=== PATIENT | male | born 1965 | race Caucasian/White ===

== ENCOUNTER 2017-10-11 01:16 | Inpatient (IN) | payer OTHER ==
[2017-10-11] MEDS ORDERED: VANCOMYCIN IV PER PHARMACY XX (02:00)
[2017-10-11] MEDS ORDERED: PIPER-TAZO 3.375 GM IV (PMX) 100 ML IVPB (02:00)
[2017-10-11] MEDS ORDERED: BISACODYL (EC) 5 MG TAB PO (02:00)
[2017-10-11] MEDS ORDERED: ACETAMINOPHEN 325 MG TAB PO (02:00)
[2017-10-11] MEDS ORDERED: DOCUSATE SODIUM 100 MG CAP PO (02:00)
[2017-10-11] MEDS ORDERED: morphine 2 MG INJ IV (02:00)
[2017-10-11] MEDS ORDERED: ONDANSETRON 4 MG INJ IV (02:00)
[2017-10-11] MEDS ORDERED: NACL 0.9% 3 ML SYG IV (02:00)
[2017-10-11 02:58] LABS: ADD MAN DIFF? NO
[2017-10-11] MEDS ORDERED: LEVOFLOXACIN 750MG/D5W (PMX) 150 ML IVPB (03:00)
[2017-10-11 03:03] LABS: BASOPHIL # 0.1 10^3/ul (0.0-0.1); EOSINOPHILS # 0.3 10^3/ul (0.0-0.5); EOSINOPHILS % 3.3 % (0.0-7.0); HEMATOCRIT 39.1 % (42.0-52.0); HEMOGLOBIN 13.2 g/dl (14.0-18.0); LYMPHOCYTES # 1.5 10^3/ul (0.8-2.9); LYMPHOCYTES % 14.7 % (15.0-51.0); MEAN CORPUSCULAR HEMOGLOBIN 32.4 pg (29.0-33.0); MEAN CORPUSCULAR HGB CONC 33.8 g/dl (32.0-37.0); MEAN CORPUSCULAR VOLUME 96.1 fl (82.0-101.0); MEAN PLATELET VOLUME 10.2 fl (7.4-10.4); MONOCYTE # 1.1 10^3/ul (0.3-0.9); MONOCYTES % 11.3 % (0.0-11.0); NEUTROPHILS % 69.2 % (39.0-77.0); PLATELET COUNT 256 10^3/UL (140-415); RED BLOOD COUNT 4.07 10^6/ul (4.70-6.10); RED CELL DISTRIBUTION WIDTH 13.9 % (11.5-14.5)
[2017-10-11 03:03] LABS: WHITE BLOOD COUNT 10.1 10^3/ul (4.8-10.8)
[2017-10-11 03:24] LABS: ALANINE AMINOTRANSFERASE 26 IU/L (13-69); ALBUMIN 3.5 g/dl (3.3-4.9); ALBUMIN/GLOBULIN RATIO 1.16; ALKALINE PHOSPHATASE 120 IU/L (42-121); ANION GAP 13 (8-16); ASPARTATE AMINO TRANSFERASE 26 IU/L (15-46); BLOOD UREA NITROGEN 40 mg/dl (7-20); CALCIUM 8.8 mg/dl (8.4-10.2); CARBON DIOXIDE 22 mmol/L (21-31); CHLORIDE 107 mmol/L (97-110); CREATININE 1.84 mg/dl (0.61-1.24); GLUCOSE 110 mg/dl (70-220); POTASSIUM 5.1 mmol/L (3.5-5.1); SODIUM 137 mmol/L (135-144); TOTAL PROTEIN 6.5 g/dl (6.1-8.1)
[2017-10-11 03:32] LABS: HEMOGLOBIN A1C 5.5 % (0-5.9)
[2017-10-11] MEDS: SOD CHLORIDE 0.9% 1,000 ML IV ×2 (04:21→14:22)
[2017-10-11] MEDS: LEVOFLOXACIN 750MG/D5W (PMX) 150 ML IVPB (05:19)
[2017-10-11] MEDS: HYDROmorphONE 1 MG/ML SYG IV ×3 (05:48→18:44)
[2017-10-11] MEDS: metroNIDAZOLE 500 MG/NS (PMX) 100 ML IVPB ×3 (06:54→21:51)
[2017-10-11] MEDS: VANCOMYCIN 1.75 GM in SOD CHLORIDE 0.9% 500 ML IVPB (10:46)
[2017-10-11 18:34] LABS: LACTIC ACID 1.2 mmol/L (0.5-2.0)
[2017-10-11] MEDS: METHYLPREDNISOLONE 125 MG INJ IV (18:41)
[2017-10-11 18:46] LABS: C-REACTIVE PROTEIN 5.1 mg/dl (0.0-0.9)
[2017-10-11 19:45] LABS: ERYTHROCYTE SEDIMENTATION RATE 27 mm/Hr (0-20)
[2017-10-11] MEDS: COLCHICINE 0.6 MG TAB PO (20:10)
[2017-10-11 20:17] LABS: URIC ACID 9.8 mg/dl (3.1-7.9)
[2017-10-11] MEDS ORDERED: METHYLPREDNISOLONE 125 MG INJ IV (20:30)
[2017-10-12] MEDS: LORAZEPAM 2 MG INJ IV ×2 (02:14→20:39)
[2017-10-12] MEDS: SOD CHLORIDE 0.9% 1,000 ML IV ×2 (02:57→15:22)
[2017-10-12] MEDS: LEVOFLOXACIN 750MG/D5W (PMX) 150 ML IVPB (05:00)
[2017-10-12 05:33] LABS: ADD MAN DIFF? NO
[2017-10-12 05:39] LABS: ABNORMAL IP MESSAGE 1; BASOPHILS % 0.3 % (0.0-2.0); EOSINOPHILS % 0.1 % (0.0-7.0); HEMATOCRIT 40.8 % (42.0-52.0); HEMOGLOBIN 13.8 g/dl (14.0-18.0); LYMPHOCYTES # 0.1 10^3/ul (0.8-2.9); LYMPHOCYTES % 1.2 % (15.0-51.0); MEAN CORPUSCULAR HEMOGLOBIN 31.9 pg (29.0-33.0); MEAN CORPUSCULAR HGB CONC 33.8 g/dl (32.0-37.0); MEAN CORPUSCULAR VOLUME 94.4 fl (82.0-101.0); MEAN PLATELET VOLUME 10.1 fl (7.4-10.4); MONOCYTE # 0.3 10^3/ul (0.3-0.9); MONOCYTES % 2.6 % (0.0-11.0); NEUTROPHIL # 10.7 10^3/ul (1.6-7.5); NEUTROPHILS % 95.4 % (39.0-77.0); PLATELET COUNT 283 10^3/UL (140-415); POSITIVE DIFF @See below; RED BLOOD COUNT 4.32 10^6/ul (4.70-6.10); RED CELL DISTRIBUTION WIDTH 13.5 % (11.5-14.5)
[2017-10-12 05:39] LABS: WHITE BLOOD COUNT 11.2 10^3/ul (4.8-10.8)
[2017-10-12] MEDS: metroNIDAZOLE 500 MG/NS (PMX) 100 ML IVPB (06:47)
[2017-10-12 06:50] LABS: ALANINE AMINOTRANSFERASE 31 IU/L (13-69); ALBUMIN 3.5 g/dl (3.3-4.9); ALBUMIN/GLOBULIN RATIO 1.09; ALKALINE PHOSPHATASE 100 IU/L (42-121); ANION GAP 17 (8-16); ASPARTATE AMINO TRANSFERASE 24 IU/L (15-46); BILIRUBIN,INDIRECT 0.2 mg/dl (0-1.1); BILIRUBIN,TOTAL 0.2 mg/dl (0.2-1.3); BLOOD UREA NITROGEN 29 mg/dl (7-20); CALCIUM 9.2 mg/dl (8.4-10.2); CARBON DIOXIDE 19 mmol/L (21-31); CHLORIDE 106 mmol/L (97-110); CREATININE 1.37 mg/dl (0.61-1.24); GLUCOSE 187 mg/dl (70-220); MAGNESIUM 1.7 mg/dl (1.7-2.5); POTASSIUM 4.9 mmol/L (3.5-5.1); SODIUM 137 mmol/L (135-144); TOTAL PROTEIN 6.7 g/dl (6.1-8.1)
[2017-10-12 08:45] LABS: FREE T3 3.39 pg/ml (2.77-5.27)
[2017-10-12 08:51] LABS: FREE T4 (FREE THYROXINE) 0.88 ng/dl (0.64-1.79)
[2017-10-12] MEDS: hydrALAzine 20 MG INJ IV ×3 (09:09→23:14)
[2017-10-12] MEDS: VANCOMYCIN 1.5 GM in SOD CHLORIDE 0.9% 250 ML IVPB (10:16)
[2017-10-12] MEDS: HYDROmorphONE 1 MG/ML SYG IV ×2 (12:20→18:10)
[2017-10-12] MEDS: COLCHICINE 0.6 MG TAB PO ×2 (14:15→20:36)
[2017-10-12] MEDS: METHYLPREDNISOLONE 125 MG INJ IV ×2 (14:17→21:52)
[2017-10-12] MEDS: HYDROCODONE/APAP (10/325) TAB PO (17:17)
[2017-10-12] MEDS: AMLODIPINE 5 MG TAB PO (20:39)
[2017-10-12] MEDS: LEVOTHYROXINE 25 MCG TAB PO (21:50)
[2017-10-12] MEDS: FUROSEMIDE 20 MG TAB PO (21:51)
[2017-10-13] MEDS: hydrALAzine 20 MG INJ IV ×3 (00:36→13:46)
[2017-10-13] MEDS: SOD CHLORIDE 0.9% 1,000 ML IV ×3 (02:19→17:02)
[2017-10-13 05:46] LABS: MAGNESIUM 1.7 mg/dl (1.7-2.5)
[2017-10-13] MEDS: METHYLPREDNISOLONE 125 MG INJ IV ×3 (05:58→21:53)
[2017-10-13] MEDS: LEVOTHYROXINE 25 MCG TAB PO (05:58)
[2017-10-13] MEDS: HYDROmorphONE 1 MG/ML SYG IV (07:14)
[2017-10-13] MEDS: HYDROCODONE/APAP (10/325) TAB PO ×3 (09:04→23:22)
[2017-10-13] MEDS: COLCHICINE 0.6 MG TAB PO ×2 (09:04→21:39)
[2017-10-13] MEDS: LORAZEPAM 2 MG INJ IV (12:33)
[2017-10-13] MEDS: FUROSEMIDE 40 MG TAB PO (12:33)
[2017-10-13 13:26] LABS: ANA SCREEN NEGATIVE (NEGATIVE)
[2017-10-13 14:22] LABS: ADD MAN DIFF? NO
[2017-10-13 14:24] LABS: WHITE BLOOD COUNT 20.5 10^3/ul (4.8-10.8)
[2017-10-13 14:24] LABS: ABNORMAL IP MESSAGE 1; BASOPHILS % 0.2 % (0.0-2.0); EOSINOPHILS % 0.2 % (0.0-7.0); HEMATOCRIT 40.2 % (42.0-52.0); HEMOGLOBIN 13.8 g/dl (14.0-18.0); LYMPHOCYTES # 0.3 10^3/ul (0.8-2.9); LYMPHOCYTES % 1.5 % (15.0-51.0); MEAN CORPUSCULAR HEMOGLOBIN 32.7 pg (29.0-33.0); MEAN CORPUSCULAR HGB CONC 34.3 g/dl (32.0-37.0); MEAN CORPUSCULAR VOLUME 95.3 fl (82.0-101.0); MEAN PLATELET VOLUME 9.7 fl (7.4-10.4); MONOCYTE # 0.4 10^3/ul (0.3-0.9); MONOCYTES % 1.7 % (0.0-11.0); NEUTROPHIL # 19.7 10^3/ul (1.6-7.5); PLATELET COUNT 332 10^3/UL (140-415); POSITIVE DIFF @See below; RED BLOOD COUNT 4.22 10^6/ul (4.70-6.10)
[2017-10-13 14:55] LABS: ANION GAP 17 (8-16); BLOOD UREA NITROGEN 29 mg/dl (7-20); CALCIUM 8.9 mg/dl (8.4-10.2); CARBON DIOXIDE 20 mmol/L (21-31); CHLORIDE 105 mmol/L (97-110); CREATININE 1.15 mg/dl (0.61-1.24); GLUCOSE 243 mg/dl (70-220); POTASSIUM 4.6 mmol/L (3.5-5.1); SODIUM 137 mmol/L (135-144)
[2017-10-13] MEDS: ISOSORBIDE DINITRATE 10 MG TAB PO ×2 (14:59→21:40)
[2017-10-13] MEDS: AMLODIPINE 5 MG TAB PO (21:40)
[2017-10-13] MEDS: HYDROmorphONE 4 MG TAB PO (21:53)
[2017-10-14] MEDS: HYDROmorphONE 4 MG TAB PO ×3 (03:18→12:11)
[2017-10-14] MEDS: SOD CHLORIDE 0.9% 1,000 ML IV ×2 (04:52→05:47)
[2017-10-14 05:18] LABS: ADD MAN DIFF? NO
[2017-10-14 05:22] LABS: WHITE BLOOD COUNT 19.5 10^3/ul (4.8-10.8)
[2017-10-14 05:22] LABS: ABNORMAL IP MESSAGE 1; BASOPHILS % 0.2 % (0.0-2.0); HEMATOCRIT 39.3 % (42.0-52.0); HEMOGLOBIN 13.7 g/dl (14.0-18.0); LYMPHOCYTES # 0.4 10^3/ul (0.8-2.9); LYMPHOCYTES % 2.1 % (15.0-51.0); MEAN CORPUSCULAR HGB CONC 34.9 g/dl (32.0-37.0); MEAN CORPUSCULAR VOLUME 94.7 fl (82.0-101.0); MEAN PLATELET VOLUME 9.8 fl (7.4-10.4); MONOCYTE # 0.6 10^3/ul (0.3-0.9); MONOCYTES % 2.8 % (0.0-11.0); NEUTROPHIL # 18.3 10^3/ul (1.6-7.5); PLATELET COUNT 336 10^3/UL (140-415); POSITIVE DIFF @See below; RED BLOOD COUNT 4.15 10^6/ul (4.70-6.10); RED CELL DISTRIBUTION WIDTH 13.8 % (11.5-14.5)
[2017-10-14 05:34] LABS: PHOSPHORUS 4.2 mg/dl (2.5-4.9)
[2017-10-14 05:37] LABS: ANION GAP 11 (8-16); BLOOD UREA NITROGEN 31 mg/dl (7-20); CALCIUM 8.9 mg/dl (8.4-10.2); CARBON DIOXIDE 23 mmol/L (21-31); CHLORIDE 108 mmol/L (97-110); CREATININE 1.16 mg/dl (0.61-1.24); GLUCOSE 153 mg/dl (70-220); POTASSIUM 4.3 mmol/L (3.5-5.1); SODIUM 138 mmol/L (135-144)
[2017-10-14] MEDS: LEVOTHYROXINE 25 MCG TAB PO (05:44)
[2017-10-14] MEDS: METHYLPREDNISOLONE 125 MG INJ IV ×2 (05:44→13:18)
[2017-10-14] MEDS: COLCHICINE 0.6 MG TAB PO (08:17)
[2017-10-14] MEDS: FUROSEMIDE 40 MG TAB PO (08:18)
[2017-10-14] MEDS: ISOSORBIDE DINITRATE 10 MG TAB PO ×2 (08:19→12:15)
[2017-10-14] MEDS: LORAZEPAM 2 MG INJ IV (08:24)
[2017-10-14] MEDS: hydrALAzine 20 MG INJ IV (13:19)
== END 2017-10-14 15:12 | disposition home or self-care (01) | DRG 554 ==
LOC: MS1 01:16
DX: M1A.9XX0 Chronic gout, unspecified, without tophus (tophi) (principal); N17.9 Acute kidney failure, unspecified; M65.9 Synovitis and tenosynovitis, unspecified; I12.9 Hypertensive chronic kidney disease with stage 1 through stage 4 chronic kidney disease, or unspecified chronic kidney disease; N18.9 Chronic kidney disease, unspecified; E03.9 Hypothyroidism, unspecified
CPT/HCPCS: 73218; 80048; 80053; 83036; 83605; 83735; 84100; 84439; 84443; 84481; 84560; 85025; 85651; 86038; 86140